=== PATIENT | male | born 1950 | race Hispanic/Latino ===

== ENCOUNTER 2020-02-10 15:33 | Emergency (ER) | payer OTHER ==
--- NOTE | 2020-02-10 16:40 | CT ---
CT BRAIN: 02/10/20 PROVIDED CLINICAL HISTORY: Head injury. FINDINGS: The ventricular system appears normal in size and morphology. There is no evidence for intracranial h emorrhage or mass effect. The extracranial soft tissues and osseous structures demonstrate an unremar kable CT appearance. IMPRESSION: No evidence for intracranial hemorrhage or mass effect. POS: [facility]
== END 2020-02-10 17:10 ==
LOC: ERS 15:33
DX: S06.0X0A Concussion without loss of consciousness, initial encounter (principal); H27.10 Unspecified dislocation of lens; I25.10 Atherosclerotic heart disease of native coronary artery without angina pectoris; J45.909 Unspecified asthma, uncomplicated; I10 Essential (primary) hypertension; Z79.82 Long term (current) use of aspirin; Z79.899 Other long term (current) drug therapy; Y04.8XXA Assault by other bodily force, initial encounter
CPT/HCPCS: 70450; 93005